=== PATIENT | female | born 1955 | race Caucasian/White ===

== ENCOUNTER 2019-01-14 07:23 | Day surgery (SDC) | payer OTHER ==
[~2019-01-14 07:23] MED LIST: DIPHENHYDRAMINE HCL 50 MG/ML VIAL ONE; EPINEPHRINE INJ 1 MG/10 ML DISP.SYRIN ONE; FLUMAZENIL INJ 0.5 MG/5 ML VIAL ONE; GLUCAGON,HUMAN RECOMB 1 MG INJ ONE; NALOXONE HCL INJ/PF 0.4 MG/1 ML SDV ONE; ONDANSETRON HCL INJ/PF 4 MG/2 ML SDV ONE
[2019-01-14] MEDS: MIDAZOLAM 2 MG/2 ML INJ ONE ×5 (07:39→07:55)
[2019-01-14] MEDS: FENTANYL CITRATE INJ/PF 100 MCG/2 ML AMPUL ONE ×2 (07:40→07:50)
--- NOTE | 2019-01-14 08:21 | Discharge Summary ---
Discharge Summary (SDC) - Discharge Final Diagnosis: Normal colonoscopy Date of Surgery: 01/14/19 Discharge Date: 01/14/19 Condition: Good Treatment or Instructions: [facility] [place] [id number] POST ENDOSCOPY DISCHARGE INSTRUCTIONS 1. Diet: Start clear liquids that a regular diet as tolerated. 2. Resume all preoperative medications. All oral anticoagulants and aspirins can be resumed 24 hours after procedure. 3. If a polypectomy was performed some bleeding per rectum may occur. This should stop within 3 days. If not, please contact the office. 4. If you had a colonoscopy you may experience some bloating and delayed return of normal bowel function for several days, your regular bowel movement pattern should resume within a week. 5. Please contact [facility] at to make an appointment with Dr. Gan for 1 to 3 weeks following procedure. 6. If you have any questions or concerns regarding your care,treatment plan or follow up, please contact our office. 7. Per clinical guidelines we recommend you undergo a repeat colonoscopy in 10 years. Referrals: LAMONT WILLS MD [Primary Care Provider] - Discharge Diet: As Tolerated Discharge Activity: Activity As Tolerated Home Care Assistance: None Needed Report the Following to Your Physician Immediately: Shortness of Breath, Increase in Pain, Fever over 101 Degrees
--- NOTE | 2019-01-14 08:23 | Operative Report ---
Operative Report DATE OF SURGERY: 01/14/19 PREOPERATIVE DIAGNOSIS: Screening colonoscopy for colorectal carcinoma POSTOPERATIVE DIAGNOSIS: Normal colon OPERATION: Total colonoscopy to cecum with photodocumentation SURGEON: JACKY MCGREGOR ANESTHESIA: Moderate Sedation TISSUE REMOVED OR ALTERED: None COMPLICATIONS: None ESTIMATED BLOOD LOSS: None INTRAOPERATIVE FINDINGS: See below PROCEDURE: Obtaining informed consent the patient was taken from the preoperative holding area to the main endoscopy suite where monitoring devices were attached to the patient. Plan and surgical timeout were conducted The patient was placed in the left lateral decubitus position with knees to chest. A perianal examination was performed. There was no visible or palpable anorectal pathology. Sphincter tone was felt to be normal. The flexible adult colonoscope was advanced through the anal rectal canal, all the way to the cecum. Visualization of the cecum was achieved and the ileocecal valve was visualized; manual depression of the abdominal wall noted intraluminall. This was an excellent study on the well-prepped bowel. The colonoscope was withdrawn slowly and methodically checked and the mucosa carefully. There was no evidence of tumor, stricture, bleeding or polyp. There was no evidence of diverticuloses. The scope was slowly withdrawn through the anal rectal canal. Complete visualization of the rectum was achieved with photodocumentation. The scope was withdrawn to the patient's anus. The patient tolerated the procedure well and was taken to the recovery area in stable condition. Per screening guidelines, patient be appropriate candidate for follow-up colonoscopy in 10 years, or sooner if any symptoms develop.
[2019-01-14 08:59] VITALS: BP 121/50
== END 2019-01-14 09:15 | disposition home or self-care (01) ==
LOC: END 07:23
PROVIDERS: ATTEND Surgery
DX: Z12.11 Encounter for screening for malignant neoplasm of colon (principal); Z79.899 Other long term (current) drug therapy; Z01.818 Encounter for other preprocedural examination
CPT/HCPCS: 45378; J2250; J3010; J0171; J1200; J1610; J2310; J2405; J3490

== ENCOUNTER → 2019-06-30 | Day surgery (SDC) | payer OTHER ==
[~2019-06-30] MED LIST changes: -DIPHENHYDRAMINE HCL 50 MG/ML VIAL ONE; -EPINEPHRINE INJ 1 MG/10 ML DISP.SYRIN ONE; -FLUMAZENIL INJ 0.5 MG/5 ML VIAL ONE; -GLUCAGON,HUMAN RECOMB 1 MG INJ ONE; +LIDOCAINE 1%/EPINEPHRINE INJ 20 ML VIAL ONE; -NALOXONE HCL INJ/PF 0.4 MG/1 ML SDV ONE; -ONDANSETRON HCL INJ/PF 4 MG/2 ML SDV ONE
--- NOTE | 2019-06-30 12:13 | Discharge Summary ---
Discharge Summary (SDC) - Discharge Final Diagnosis: Abnormal microcalcifications right breast Date of Surgery: 06/30/19 Discharge Date: 06/30/19 Condition: Good Treatment or Instructions: May resume regular activities; allow Steri-Strips to fall off on none; wear supportive bra; take Tylenol Motrin PRN pain. Follow-up with Dr. Gan at [facility] in 1 to 2 weeks Referrals: JACKY GAN MD [Primary Care Provider] - Discharge Diet: As Tolerated Discharge Activity: Activity As Tolerated, Other - Wear supportive bra when up Home Care Assistance: None Needed Report the Following to Your Physician Immediately: Shortness of Breath, Increase in Pain, Fever over 101 Degrees, Unusual Bleeding
--- NOTE | 2019-06-30 12:19 | Operative Report ---
Operative Report DATE OF SURGERY: 06/30/19 PREOPERATIVE DIAGNOSIS: Abnormal clustered microcalcifications central right br east POSTOPERATIVE DIAGNOSIS: Same OPERATION: 1. Stereotactically directed incision mammotomy, and multiple core biopsies right breast. 2. Interpretation of specimen radiograph. 3. Interpretation of intra-procedure mammography. 4. Placement of clip marker right breast SURGEON: JACKY MCGREGOR ANESTHESIA: Local TISSUE REMOVED OR ALTERED: Multiple cores right breast COMPLICATIONS: None ESTIMATED BLOOD LOSS: Scant INTRAOPERATIVE FINDINGS: See below PROCEDURE: The patient was taken from the radiology waiting area to the procedure room where she was placed in the prone position, with the right breast into compression. The target microcalcifications, 12 o'clock position, above the areola, were well visualized and localized with plus and -15 degree views. The surface of the breast was prepped with Betadine, anesthetized 1% plain lidocaine. A small incision was made with a #11 blade, and the mammotome advanced to the appropriate depth. Pre-and post fire films of the mammotome showed good alignment with the target microcalcifications. We now procedure performed biopsying, under vacuum, with the acquisition of approximately 10 specimens. Biopsies were performed in a circumferential fashion. Symptoms were placed on a Neel dish and imaged with the portable radiograph machine. This showed 2 cores with multiple microcalcifications. We Went back to the patient and performed approximately 8 more cores. These 2 were placed on a separate Neel dish, imaged with the portable radiograph machine, and also found to contain some more microcalcifications. We felt the biopsy component of the operation was complete. The mammotome was removed from the introducer sheath, and a small clip delivery device was threaded through the sheath, and the clip deployed. Post deployment images of the right breast showed retention of the clip in the biopsy cavity. There was no significant hematoma. Patient tolerated the procedure well. Patient taken out of compression, wound inspected and no bleeding identified, and wound closed with benzoin and Steri-Strips. Afterward, a right breast mammogram will be obtained. Discharge instructions provided.
== END ==
LOC: RAD 10:47
PROVIDERS: ATTEND Surgery
DX: R92.0 Mammographic microcalcification found on diagnostic imaging of breast (principal); N62 Hypertrophy of breast; Z88.0 Allergy status to penicillin
CPT/HCPCS: 88305 ×2; 88342; 19081; 77065; J3490

== ENCOUNTER → 2019-07-02 | Outpatient (CLI) | payer OTHER | LOC: WI 09:24 | PROVIDERS: ATTEND Surgery | DX: R92.0 Mammographic microcalcification found on diagnostic imaging of breast (principal) | CPT/HCPCS: 76098 ==